=== PATIENT | female | born 1985 | race Hispanic/Latino ===

== ENCOUNTER 2022-05-21 17:07 | Emergency (ER) | payer SELFPAY ==
[2022-05-21] MEDS ORDERED: HALOPERIDOL LACTATE 5 MG/1 ML INJ IV ONE (17:53)
[2022-05-21 19:11] LABS: Hematocrit 27.4 % (30.3-42.9); Hemoglobin 8.6 gm/dl (10.1-14.3); Mean Corpuscular HGB Conc 32 % (30-34); Mean Corpuscular Volume 90 fl (79-97); Platelet Count 444 K/mm3 (140-440); Red Blood Count 3.05 M/mm3 (3.65-5.03); Red Cell Distribution Width 18.8 % (13.2-15.2)
[2022-05-21 19:38] LABS: Alanine Aminotransferase 22 units/L (7-56); Albumin 3.2 g/dL (3.9-5); BUN/Creatinine Ratio 31; Blood Urea Nitrogen 86 mg/dL (7-17); Calcium 9.2 mg/dL (8.4-10.2); Hemolysis Index 13
[2022-05-21] MEDS ORDERED: HALOPERIDOL LACTATE 5 MG/1 ML INJ ONE (20:06)
[2022-05-21 20:19] LABS: Band Neutrophils # (Manual) 0.1 K/mm3; Basophils % (Manual) 0 % (0.0-1.8); Eosinophils % (Manual) 0 % (0.0-4.3); Platelet Estimate Consistent w Auto; Total Cells Counted 100
[2022-05-21 21:06] VITALS: BP 127/86
--- NOTE | 2022-05-21 21:41 | Emergency Department Report ---
ED General Adult HPI - General Chief complaint: Hyperglycemia Stated complaint: HIGH BLOOD SUGAR/UTI Time Seen by Provider: 05/21/22 17:29 Source: patient, EMS Mode of arrival: Stretcher Limitations: No Limitations - History of Present Illness Initial comments: The patient presents to the emergency department via EMS from [place] [facility] for possible DKA. Patient states she went to [place] today because her gastroparesis is having difficulty with holding food down. Patient states she was given Zofran and Valium at [place] to no avail. Review of the patient's laboratory values from [facility] showed glucose greater than 500 with a creatinine of 3.6, BUN a 98, potassium 5.3, anion gap 16, trace ketones. Patient complains of abdominal cramping but denies any abdominal pain. -: unknown Severity scale (0 -10): 0 Consistency: constant Improves with: none Worsens with: none Associated Symptoms: denies other symptoms Treatments Prior to Arrival: none - Related Data Previous Rx's Medication Instructions Recorded Last Taken Type LORazepam [Ativan] 1 mg PO BID #12 tab 05/21/22 Unknown Rx Promethazine [Phenergan] 25 mg KS Q6HR PRN #30 supp.rect 05/21/22 Unknown Rx Allergies Allergy/AdvReac Type Severity Reaction Status Date / Time No Known Allergies Allergy Verified 05/21/22 20:10 ED Review of Systems ROS: Stated complaint: HIGH BLOOD SUGAR/UTI Other details as noted in HPI Constitutional: denies: chills, fever Eyes: denies: eye pain, eye discharge, vision change ENT: denies: ear pain, throat pain Respiratory: denies: cough, shortness of breath, wheezing Cardiovascular: denies: chest pain, palpitations Endocrine: no symptoms reported Gastrointestinal: nausea, vomiting. denies: abdominal pain, diarrhea Genitourinary: denies: urgency, dysuria, discharge Musculoskeletal: denies: back pain, joint swelling, arthralgia Skin: denies: rash, lesions Neurological: denies: headache, weakness, paresthesias Psychiatric: denies: anxiety, depression Hematological/Lymphatic: denies: easy bleeding, easy bruising ED Past Medical Hx - Medications Home Medications: Home Medications Medication Instructions Recorded Confirmed Last Taken Type LORazepam [Ativan] 1 mg PO BID #12 tab 05/21/22 Unknown Rx Promethazine [Phenergan] 25 mg KS Q6HR PRN #30 supp.rect 05/21/22 Unknown Rx ED Physical Exam - General Limitations: No Limitations General appearance: alert, in no apparent distress - Head Head exam: Present: atraumatic, normocephalic - Eye Eye exam: Present: normal appearance - ENT ENT exam: Present: mucous membranes dry - Neck Neck exam: Present: normal inspection - Respiratory Respiratory exam: Present: normal lung sounds bilaterally, other (Venous access in the right subclavian region). Absent: respiratory distress - Cardiovascular Cardiovascular Exam: Present: normal rhythm, tachycardia. Absent: systolic murmur, diastolic murmur, rubs, gallop - GI/Abdominal GI/Abdominal exam: Present: soft, normal bowel sounds. Absent: distended, tenderness - Extremities Exam Extremities exam: Present: normal inspection - Back Exam Back exam: Present: normal inspection - Neurological Exam Neurological exam: Present: alert, oriented X3, CN II-XII intact. Absent: motor sensory deficit - Psychiatric Psychiatric exam: Present: normal affect, normal mood - Skin Skin exam: Present: warm, dry, intact, normal color. Absent: rash ED Course Vital Signs 05/21/22 05/21/22 05/21/22 17:07 17:40 17:45 Temperature 98.3 F Pulse Rate 119 H 114 H Respiratory 18 12 23 Rate Blood Pressure Blood Pressure 121/81 [Left] O2 Sat by Pulse 99 99 98 Oximetry 05/21/22 05/21/22 05/21/22 18:01 18:15 18:31 Temperature Pulse Rate 112 H 118 H 111 H Respiratory 22 17 24 Rate Blood Pressure 118/84 121/78 121/78 Blood Pressure [Left] O2 Sat by Pulse 100 100 100 Oximetry 05/21/22 05/21/22 05/21/22 18:45 19:01 19:15 Temperature Pulse Rate 103 H 96 H 100 H Respiratory 20 20 19 Rate Blood Pressure 91/58 91/58 82/42 Blood Pressure [Left] O2 Sat by Pulse 99 98 98 Oximetry 05/21/22 05/21/22 05/21/22 19:31 19:40 19:45 Temperature Pulse Rate 99 H 109 H 111 H Respiratory 20 16 21 Rate Blood Pressure 82/42 127/86 Blood Pressure 105/72 [Left] O2 Sat by Pulse 98 98 98 Oximetry 05/21/22 05/21/22 05/21/22 20:01 20:15 20:31 Temperature Pulse Rate 117 H 114 H 101 H Respiratory 18 15 18 Rate Blood Pressure 127/86 127/86 Blood Pressure [Left] O2 Sat by Pulse 100 100 99 Oximetry 05/21/22 05/21/22 20:45 21:01 Temperature Pulse Rate 90 89 Respiratory 21 20 Rate Blood Pressure 127/86 127/86 Blood Pressure [Left] O2 Sat by Pulse 99 98 Oximetry ED Medical Decision Making - Lab Data Result diagrams: 05/21/22 18:25 05/21/22 18:25 Lab Results 05/21/22 05/21/22 05/21/22 Range/Units 18:25 18:25 19:34 WBC 11.9 H (4.5-11.0) K/mm3 RBC 3.05 L (3.65-5.03) M/mm3 Hgb 8.6 L (10.1-14.3) gm/dl Hct 27.4 L (30.3-42.9) % MCV 90 (79-97) fl MCH 28 (28-32) pg MCHC 32 (30-34) % RDW 18.8 H (13.2-15.2) % Plt Count 444 H (140-440) K/mm3 Add Manual Diff Complete Total Counted 100 Seg Neuts % (Manual) 75.0 H (40.0-70.0) % Band Neutrophils % 1.0 % Lymphocytes % (Manual) 15.0 (13.4-35.0) % Reactive Lymphs % (Man) 0 % Monocytes % (Manual) 9.0 H (0.0-7.3) % Eosinophils % (Manual) 0 (0.0-4.3) % Basophils % (Manual) 0 (0.0-1.8) % Metamyelocytes % 0 % Myelocytes % 0 % Promyelocytes % 0 % Blast Cells % 0 % Nucleated RBC % Not Reportable Seg Neutrophils # Man 8.9 H (1.8-7.7) K/mm3 Band Neutrophils # 0.1 K/mm3 Lymphocytes # (Manual) 1.8 (1.2-5.4) K/mm3 Abs React Lymphs (Man) 0.0 K/mm3 Monocytes # (Manual) 1.1 H (0.0-0.8) K/mm3 Eosinophils # (Manual) 0.0 (0.0-0.4) K/mm3 Basophils # (Manual) 0.0 (0.0-0.1) K/mm3 Metamyelocytes # 0.0 K/mm3 Myelocytes # 0.0 K/mm3 Promyelocytes # 0.0 K/mm3 Blast Cells # 0.0 K/mm3 WBC Morphology Not Reportable Hypersegmented Neuts Not Reportable Hyposegmented Neuts Not Reportable Hypogranular Neuts Not Reportable Smudge Cells Not Reportable Toxic Granulation Not Reportable Toxic Vacuolation Not Reportable Dohle Bodies Not Reportable Pelger-Huet Anomaly Not Reportable Ava Rods Not Reportable Platelet Estimate Consistent w auto Clumped Platelets Not Reportable Plt Clumps, EDTA Not Reportable Large Platelets Not Reportable Giant Platelets Not Reportable Platelet Satelliting Not Reportable Plt Morphology Comment Not Reportable RBC Morphology Not Reportable Dimorphic RBCs Not Reportable Polychromasia Not Reportable Hypochromasia Not Reportable Poikilocytosis Not Reportable Anisocytosis Not Reportable Microcytosis Not Reportable Macrocytosis Not Reportable Spherocytes Not Reportable Pappenheimer Bodies Not Reportable Sickle Cells Not Reportable Target Cells Not Reportable Tear Drop Cells Not Reportable Ovalocytes Not Reportable Helmet Cells Not Reportable [place] Bodies Not Reportable [place] Rings Not Reportable Eduardo Cells Not Reportable Bite Cells Not Reportable Crenated Cell Not Reportable Elliptocytes Not Reportable Acanthocytes (Spur) Not Reportable Rouleaux Not Reportable Hemoglobin C Crystals Not Reportable Schistocytes Not Reportable Malaria parasites Not Reportable Elvin Bodies Not Reportable Hem Pathologist Commnt No Sodium 141 (137-145) mmol/L Potassium 4.5 (3.6-5.0) mmol/L Chloride 110.4 H (98-107) mmol/L Carbon Dioxide 14 L (22-30) mmol/L Anion Gap 21 mmol/L BUN 86 H (7-17) mg/dL Creatinine 2.8 H (0.6-1.2) mg/dL Estimated GFR 19 ml/min BUN/Creatinine Ratio 31 % Glucose 230 H (65-100) mg/dL POC Glucose 214 H (70-105) mg/dL Calcium 9.2 (8.4-10.2) mg/dL Total Bilirubin < 0.20 (0.1-1.2) mg/dL AST 15 (5-40) units/L ALT 22 (7-56) units/L Alkaline Phosphatase 152 H (35-129) units/L Total Protein 7.0 (6.3-8.2) g/dL Albumin 3.2 L (3.9-5) g/dL Albumin/Globulin Ratio 0.8 % - Medical Decision Making Upon reviewing the patient's initial laboratory findings I contacted the [facility] center and spoke to Dr. Arias who stated the patient was initially supposed to come to [facility] but before she could call back to the [place] [facility] they had transferred the patient here. We discussed the patient's labs in detail and we decided to repeat the patient's laboratory values and to reevaluate. The patient was given 4 L of IV fluids in route to the ED as well as the patient was given insulin. Repeat laboratory values were obtained and the patient does not have an anion gap glucose is less than 250. Patient's renal function shows a creatinine of 2.8. Contacted the above mentioned physician again from [facility] ( Dr. Airas) and the patient's prior laboratory values were reviewed from April of this year which showed a creatinine of 2.95. At this time it was felt that the patient will be discharged with follow-up with her primary care physician with [place] in the morning. This plan of care was discussed in detail to the patient and her guest. Patient has significant relief with [facility] Critical care attestation.: If time is entered above; I have spent that time in minutes in the direct care of this critically ill patient, excluding procedure time. ED Disposition Clinical Impression: Gastroparesis Disposition: HOME / SELF CARE / HOMELESS Is pt being admited?: No Does the pt Need Aspirin: No Condition: Stable Instructions: Gastroparesis Additional Instructions: Return if worse Prescriptions: LORazepam [Ativan] 1 mg PO BID #12 tab Promethazine [Phenergan] 25 mg KS Q6HR PRN #30 supp.rect PRN Reason: Nausea Referrals: [facility] [Provider Group] - 3-5 Days Time of Disposition: 21:41
== END 2022-05-21 23:21 | disposition home or self-care (01) ==
LOC: ED 17:07
DX: K31.84 Gastroparesis (principal)
CPT/HCPCS: 36415; 80053; 82962; 85007; 85025; 96374; 99284; J1630